=== PATIENT | male | born 1960 | race Caucasian/White ===

== ENCOUNTER 2019-11-22 13:04 | Emergency (ER) | payer SELFPAY ==
[~2019-11-22] VITALS: Ht 180.3 cm; Wt 86.4 kg
[2019-11-22 13:28] VITALS: BP 153/99
--- NOTE | 2019-11-22 13:35 | PHYS DOC ---
Adult General Chief Complaint Chief Complaint: UPPER EXTREMITY PAIN HPI HPI Patient is a 59 year old male who presents with complaint of right wrist and shoulder pain. The patient states that he had an accidental fall 2 days ago after slipping on concrete steps leading from his friends home. Notes that he landed on his right wrist and right shoulder during the fall. Did not hit head or lose consciousness. Was immediately able to ambulate after the fall. Notes that he had more severe pain in his right shoulder initially. States that today his shoulder pain has improved, however he has had worsening pain to his right wrist. He states that he went to work yesterday. 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 Notes that after working yesterday he had a significant increase in swelling to the right wrist with worsening pain. Denies chest pain, shortness of breath, fever, or unilateral weakness. Has not taken any medications today for symptoms. Review of Systems Review of Systems Constitutional: Denies fever or chills [] Eyes: Denies change in visual acuity, redness, or eye pain [] HENT: Denies nasal congestion or sore throat [] Respiratory: Denies cough or shortness of breath [] Cardiovascular: Denies chest pain or edema [] GI: Denies abdominal pain, nausea, vomiting, bloody stools or diarrhea [] : Denies dysuria or hematuria [] Musculoskeletal: Right shoulder pain, right wrist pain [] Integument: Denies rash or skin lesions [] Neurologic: Denies headache, focal weakness or sensory changes [] All other systems were reviewed and found to be within normal limits, except as documented in this note. Allergies Allergies Allergies Coded Allergies Type Severity Reaction Last Updated Verified No Known Drug Allergies 11/22/19 No Physical Exam Physical Exam Constitutional: Well developed, well nourished, no acute distress, non-toxic appearance. [] HENT: Normocephalic, atraumatic, bilateral external ears normal, oropharynx moist, no oral exudates, nose normal. [] Eyes: PERRLA, EOMI, conjunctiva normal, no discharge. [] Neck: Normal range of motion, no tenderness, supple, no stridor. [] Cardiovascular:Heart rate regular rhythm, no murmur [] Lungs & Thorax: Bilateral breath sounds clear to auscultation [] Abdomen: Bowel sounds normal, soft, no tenderness, no masses, no pulsatile masses. [] Skin: Warm, dry, no erythema, no rash. [] Back: No tenderness, no CVA tenderness. [] Extremities: Normal range of motion in right shoulder, no deformities noted, right wrist with moderate swelling, tenderness palpation along dorsum joint space, decreased extension and flexion at wrist present, capillary refill normal in all 5 digits of right hand. [] Neurologic: Alert and oriented X 3, normal motor function, normal sensory function, no focal deficits noted. [] Current Patient Data Vital Signs Vital Signs Date Time Temp Pulse Resp B/P (MAP) Pulse Ox O2 Delivery O2 Flow Rate FiO2 11/22/19 13:28 98.9 79 20 153/99 (117) 97 Room Air Lab Results Not performed EKG EKG Not performed [] Radiology/Procedures Radiology/Procedures [address] [address] IMAGING REPORT Signed PATIENT: CHERI GARCIA LACCOUNT: [id number] : 1960 LOCATION: ER AGE: 59 SEX: M EXAM STATUS: REG ER ORD. PHYSICIAN: COLLEEN NICKERSON MD REASON: wrist pain and swelling, fall 2 days ago PROCEDURE: WRIST 3V RIGHT WRIST 3V RIGHT DATE: 11/22/2019 1:24 PM INDICATION: Pain and swelling after fall COMPARISON: None. FINDINGS: Bones: There is no acute fracture or dislocation. Joints: The joint spaces are normal. Miscellaneous: None. IMPRESSION: No acute fracture. Electronically signed by: Whitney Cardoza MD (11/22/2019 1:42 PM) [id number] DICTATED AND SIGNED BY: WHITNEY CARDOZA MD DATE: 11/22/19 1342 CC: COLLEEN NICKERSON MD; PCP,NO ~ [] Course & Med Decision Making Course & Med Decision Making Pertinent Labs and Imaging studies reviewed. (See chart for details) X-rays appear negative for fracture in the wrist. The patient's right shoulder displays good range of motion and no bony tenderness. Findings appear consistent with right shoulder contusion and right wrist sprain. Fantasma wrap applied to right wrist by emergency department nurse. Patient prescribed ibuprofen for outpatient treatment of symptoms. Advised follow-up with primary doctor in 1 week for reevaluation and return to the emergency department for any worsening symptoms. Patient voiced understanding and agreement with treatment plan. [] Dragon Disclaimer Dragon Disclaimer This electronic medical record was generated, in whole or in part, using a voice recognition dictation system. Departure Departure: Impression: Primary Impression: Sprain of right wrist Additional Impression: Contusion of right shoulder Disposition: HOME, SELF-CARE Condition: STABLE Referrals: PCP,NO (PCP) Patient Instructions: Contusion, Joint Sprain Additional Instructions: Follow-up with your primary doctor in 1 week for reevaluation of symptoms have not improved. Return to the emergency department for any worsening symptoms. Scripts Ibuprofen (IBUPROFEN) 600 Mg Tablet 600 MG PO Q6-8HRS PRN for PAIN, #21 TAB Prov: COLLEEN NICKERSON MD 11/22/19 Problem Qualifiers Primary Impression: Sprain of right wrist Encounter type: initial encounter Qualified Codes: S63.501A - Unspecified sprain of right wrist, initial encounter Additional Impression: Contusion of right shoulder Encounter type: initial encounter Qualified Codes: S40.011A - Contusion of right shoulder, initial encounter COLLEEN NICKERSON MD November 22, 2019 13:35
--- NOTE | 2019-11-22 13:45 | RAD ---
WRIST 3V RIGHT DATE: 11/22/2019 1:24 PM INDICATION: Pain and swelling after fall COMPARISON: None. FINDINGS: Bones: There is no acute fracture or dislocation. Joints: The joint spaces are normal. Miscellaneous: None. IMPRESSION: No acute fracture. Electronically signed by: Jose Maria Bradshaw MD (11/22/2019 1:42 PM) [id number]
[2019-11-22] MEDS ORDERED: IBUP600T16 PO (13:51)
== END 2019-11-22 14:02 | disposition home or self-care (01) ==
LOC: ER 13:04
DX: S63.591A Other specified sprain of right wrist, initial encounter (principal); M25.511 Pain in right shoulder; R60.0 Localized edema; W18.39XA Other fall on same level, initial encounter; Y93.89 Activity, other specified; Y92.89 Other specified places as the place of occurrence of the external cause; Y99.8 Other external cause status
CPT/HCPCS: 73110; 99284

== ENCOUNTER 2020-03-11 08:26 | Emergency (ER) | payer SELFPAY ==
[~2020-03-11] VITALS: Ht 180.3 cm; Wt 86.9 kg
[~2020-03-11 08:26] MED LIST: IBUP600T16 PO
--- NOTE | 2020-03-11 08:42 | PHYS DOC ---
Past History Past Medical History: Hypertension Additional Past Surgical Histo: Appy stents Alcohol Use: None Adult General Chief Complaint Chief Complaint: UPPER EXTREMITY PAIN HPI HPI Patient is a 59-year-old male who presents with left upper extremity pain. Onset was 3 days prior to arrival when patient was at work. 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 Direct palpation of anterior shoulder in certain ranges of motion make worse Pain focal, nonradiating," not bothering me that much right now", and 80% improved since onset Review of Systems Review of Systems Fourteen body systems of review of systems have been reviewed. See HPI for pertinent positives and negative responses, other narayan all other systems are negative, non-pertinent or non-contributory Allergies Allergies Allergies Coded Allergies Type Severity Reaction Last Updated Verified No Known Drug Allergies 03/11/20 No Physical Exam Physical Exam Constitutional: Well developed, well nourished, no acute distress, non-toxic appearance. HENT: Normocephalic, atraumatic, bilateral external ears normal, oropharynx moist, no oral exudates, nose normal. Eyes: PERRLA, EOMI, conjunctiva normal, no discharge. Neck: Normal range of motion, no tenderness, supple, no stridor. Cardiovascular: Heart rate regular, sinus rhythm, no murmurs rubs or gallops Lungs & Thorax: Bilateral breath sounds clear to auscultation Abdomen: Bowel sounds normal, soft, no tenderness, no masses, no pulsatile masses. Nonsurgical abdomen, no peritoneal signs Skin: Warm, dry, no erythema, no rash. Back: No tenderness, no CVA tenderness. Extremities: No cyanosis, no clubbing, ROM intact, no edema. Shoulders Appearance of Glenohumeral joint normal and symmetric Nontender Clavicle and Humerus that are normal and symmetric without any palpable abnormalities Focal tenderness over left AC joint that is reproducible and pain that brought patient to ER today Sensation over deltoid in tact Neurovascular exam distally in tact per routine Compartments surrounding are soft Elbows Distal humerus nontender Olecranon nontender Medial and Lateral epicondyles nontender Full Range of Motion with full strength Neurovascular exam distally in tact per routine Compartments surrounding are soft Neurologic: Alert and oriented X 3, grossly normal motor & sensory function, no focal deficits noted. Psychologic: Flat affect, judgement normal, mood normal. Current Patient Data Vital Signs Vital Signs Date Time Temp Pulse Resp B/P (MAP) Pulse Ox O2 Delivery O2 Flow Rate FiO2 03/11/20 08:36 97.7 79 18 151/88 (109) 95 Room Air EKG EKG [] Radiology/Procedures Radiology/Procedures [] Course & Med Decision Making Course & Med Decision Making Hypertensive otherwise hemodynamically stable patient Comprehensive history and physical exam performed, findings nonemergent/nonsurgical. Discussed most likely diagnoses of AC joint versus other likely self-limiting left shoulder injury. Discussed limited utility in radiographs or other imaging in ER setting today. Offered imaging but patient declined Given that patient's pain and symptoms significantly improved since onset, recommended continued supportive care with ice and as needed Tylenol use Patient does not have PCP, advised patient to establish with local PCP for continuity of care to ensure symptomatic resolution and address hypertensive reading today for consideration of outpatient medical management Patient given list of left upper extremity exercises, educated on supportive care, and given list of local PCP to establish with All questions and concerns addressed prior to ER departure, patient educated on strict return precautions with good understanding Dragon Disclaimer Dragon Disclaimer This electronic medical record was generated, in whole or in part, using a voice recognition dictation system. Departure Departure: Impression: Primary Impression: Sprain of left acromioclavicular joint Additional Impressions: Left shoulder amputee Hypertension Disposition: HOME/RESIDENCE PRIOR TO ADM Condition: STABLE Referrals: PCP,NO (PCP) Patient Instructions: RICE - Routine Care for Injuries, Shoulder Exercises, Generic, SportsMed Justification of Admission: Justification of Admission: Justification of Admission Dx: N/A Problem Qualifiers JOSELINE MYERS DO Mar 11, 2020 08:42
[2020-03-11 09:12] VITALS: BP 128/93
== END 2020-03-11 09:07 | disposition home or self-care (01) ==
LOC: ER 08:26
DX: S43.52XA Sprain of left acromioclavicular joint, initial encounter (principal); I10 Essential (primary) hypertension; Z89.232 Acquired absence of left shoulder; Z79.82 Long term (current) use of aspirin; X50.9XXA Other and unspecified overexertion or strenuous movements or postures, initial encounter; Y93.89 Activity, other specified; Y92.89 Other specified places as the place of occurrence of the external cause; Y99.8 Other external cause status
CPT/HCPCS: 99281